=== PATIENT | female | born 1955 | race African-American/Black ===

== ENCOUNTER 2017-11-09 14:55 | Inpatient (IN) | payer OTHER ==
[~2017-11-09] VITALS: Ht 154.9 cm; Wt 65.8 kg
[2017-11-09 16:35] LABS: BASOPHIL (%) 0.3 % (0-1); EOSINOPHIL COUNT 0.1 K/uL (0-0.3); HEMATOCRIT 41.2 % (36.0-46.0); HEMOGLOBIN 13.1 G/DL (11.9-15.5); IMMATURE GRANULOCYTE (%) 0.3 % (0.0-0.7); LYMPHOCYTE (%) 50.7 % (15-42); LYMPHOCYTE COUNT 1.9 K/uL (1.0-2.8); MCH 27.8 PG (29.0-34.0); MCHC 31.8 G/DL (30.0-36.0); MCV 87.5 FL (83-99); MONOCYTE (%) 8.9 % (3-12); MONOCYTE COUNT 0.3 K/uL (0-0.8); NEUTROPHIL (%) 36.8 % (45-76); NEUTROPHIL COUNT 1.4 K/uL (1.8-6.4); RBC DIS.WIDTH-CV 13.3 % (11.8-14.6); RBC DIS.WIDTH-SD 42.6 % (39-53); RED BLOOD COUNT 4.71 M/uL (3.80-5.20); WHITE BLOOD COUNT 3.7 K/uL (4.1-10.2)
[2017-11-09 16:54] LABS: ALBUMIN 4.1 g/dL (3.2-4.8); CHLORIDE 103 mEq/L (99-109); POTASSIUM 3.9 mEq/L (3.7-5.4); SODIUM 141 mEq/L (136-147)
[2017-11-09 16:57] LABS: GLUCOSE 75 mg/dL (70-99); TOTAL PROTEIN 7.4 g/dL (6.4-8.3)
[2017-11-09 16:59] LABS: TOTAL BILIRUBIN 0.3 mg/dL (0.0-1.0)
[2017-11-09 17:00] LABS: ALKALINE PHOSPHATASE 101 IU/L (3-129); CREATININE 0.8 mg/dL (0.6-1.3)
[2017-11-09 17:01] LABS: UREA NITROGEN (BUN) 11 mg/dL (9-23)
[2017-11-09 17:02] LABS: AST (GOT) 17 IU/L (2-34); TROP-I INTERPRETATION NEGATIVE; TROPONIN-I < 0.01 ng/mL (0.0-0.30)
[2017-11-09 17:03] LABS: ALT (GPT) 13 IU/L (3-49)
[2017-11-09 17:06] LABS: GFR ESTIMATE (CALCULATED) > 59 mL/min/
[2017-11-09] MEDS ORDERED: METHADONE10 MG PO (17:55)
[2017-11-09] MEDS ORDERED: NEXIUM40 MG PO (17:56)
[2017-11-09] MEDS ORDERED: VENTOLIN HFA18 GM IH (17:57)
[2017-11-09] MEDS ORDERED: SYMBICORT60 INHALAT IH (17:57)
[2017-11-09] MEDS ORDERED: ADVIL200 MG PO (17:58)
[2017-11-09] MEDS ORDERED: NEURONTIN300 MG PO (17:58)
[2017-11-09 18:16] LABS: BASE EXCESS 8.8 mEq/L (-3 to +3); BICARBONATE 36.1 mEq/L (22-26); CARBOXY HGB 3.5 % (0-5); METHEMOGLOBIN 0.8 % (0-1.5); PCO2 61 mm Hg (35-45); PO2 50 mm Hg (80-100); pH 7.38 (7.35-7.45)
[2017-11-09 18:17] LABS: COMMENTS - BLOOD GASES A+C+; DEVICE NC; O2 FLOW 3 L/MIN; SITE RR; TOTAL RESP RATE 16 resp/min
[2017-11-09 18:19] LABS: PLAT.SUFFICIENCY ADEQUATE; PLATELET COUNT 217 K/uL (156-360)
[2017-11-10 02:12] VITALS: BP 146/65
[2017-11-10 07:06] VITALS: BP 138/63
[2017-11-10 07:45] LABS: HEMATOCRIT 40.8 % (36.0-46.0); HEMOGLOBIN 12.6 G/DL (11.9-15.5); MCH 26.9 PG (29.0-34.0); MCHC 30.9 G/DL (30.0-36.0); PLATELET COUNT 255 K/uL (156-360); RBC DIS.WIDTH-CV 13.2 % (11.8-14.6); RBC DIS.WIDTH-SD 42.1 % (39-53); RED BLOOD COUNT 4.69 M/uL (3.80-5.20); WHITE BLOOD COUNT 3.8 K/uL (4.1-10.2)
[2017-11-10 08:10] LABS: CHLORIDE 103 MEQ/L (99-109); CREATININE 0.7 MG/DL (0.6-1.3); GFR ESTIMATE (CALCULATED) > 59 mL/min/; POTASSIUM 3.9 MEQ/L (3.7-5.4); SODIUM 139 MEQ/L (136-147); UREA NITROGEN (BUN) 14 mg/dL (9-23)
[2017-11-10 08:14] LABS: GLUCOSE 239 mg/dL (70-99)
[2017-11-10 11:15] VITALS: BP 146/70
[2017-11-10 15:09] VITALS: BP 145/67
[2017-11-10 20:46] VITALS: BP 153/71
[2017-11-11 00:05] VITALS: BP 128/64
[2017-11-11 04:00] VITALS: BP 136/88
[2017-11-11 07:45] VITALS: BP 147/72
[2017-11-11 16:29] VITALS: BP 136/63
[2017-11-12 00:02] VITALS: BP 154/70
[2017-11-12 08:00] LABS: CHLORIDE 102 MEQ/L (99-109); CREATININE 0.7 MG/DL (0.6-1.3); GFR ESTIMATE (CALCULATED) > 59 mL/min/; GLUCOSE 151 mg/dL (70-99); POTASSIUM 4.3 MEQ/L (3.7-5.4); SODIUM 141 MEQ/L (136-147); UREA NITROGEN (BUN) 16 mg/dL (9-23)
[2017-11-12 08:05] VITALS: BP 163/79
[2017-11-12 11:46] LABS: HEPATITIS B SURFACE ANTIGEN Nonreactive
[2017-11-12 11:47] LABS: ANTI-HEPATITIS A VIRUS (IGM) Nonreactive; ANTI-HEPATITIS B CORE (IGM) Nonreactive
[2017-11-12 11:48] LABS: HIV-1/2 AB/AG COMBO Nonreactive
[2017-11-12 11:59] LABS: HEPATITIS C ANTIBODY REACTIVE
[2017-11-12 17:04] VITALS: BP 190/85
[2017-11-13 00:08] VITALS: BP 146/76
[2017-11-13 07:51] LABS: HEMOGLOBIN A1c (GLYCOHEMOGLOB) 6.2 % HGB (Below 5.7)
[2017-11-13 10:19] LABS: CHLORIDE 102 MEQ/L (99-109); CREATININE 0.8 MG/DL (0.6-1.3); GFR ESTIMATE (CALCULATED) > 59 mL/min/; GLUCOSE 116 mg/dL (70-99); POTASSIUM 3.9 MEQ/L (3.7-5.4); SODIUM 141 MEQ/L (136-147); UREA NITROGEN (BUN) 21 mg/dL (9-23)
[2017-11-13 11:29] VITALS: BP 210/100
[2017-11-13 11:42] VITALS: BP 198/78
[2017-11-13 11:54] LABS: TROP-I INTERPRETATION NEGATIVE; TROPONIN-I < 0.01 ng/mL (0.0-0.30)
[2017-11-13 15:27] VITALS: BP 198/88
[2017-11-13 17:55] VITALS: BP 173/74
[2017-11-13 18:23] LABS: TROP-I INTERPRETATION NEGATIVE; TROPONIN-I < 0.01 ng/mL (0.0-0.30)
[2017-11-13 23:16] VITALS: BP 145/70
[2017-11-14 07:11] LABS: TROP-I INTERPRETATION NEGATIVE; TROPONIN-I < 0.01 ng/mL (0.0-0.30)
[2017-11-14 07:15] VITALS: BP 142/67
[2017-11-14 07:23] LABS: CHLORIDE 103 MEQ/L (99-109); CREATININE 0.8 MG/DL (0.6-1.3); GFR ESTIMATE (CALCULATED) > 59 mL/min/; POTASSIUM 3.9 MEQ/L (3.7-5.4); SODIUM 140 MEQ/L (136-147); UREA NITROGEN (BUN) 15 mg/dL (9-23)
[2017-11-14 07:24] LABS: GLUCOSE 183 mg/dL (70-99)
[2017-11-14 15:45] VITALS: BP 117/58
[2017-11-14 20:23] LABS: HCV RNA (IU/mL) <15 IU/mL (<15)
[2017-11-15 00:37] VITALS: BP 139/65
[2017-11-15 07:14] VITALS: BP 133/75
[2017-11-15 09:17] LABS: BASOPHIL (%) 0.1 % (0-1); EOSINOPHIL (%) 0 % (0-5); HEMATOCRIT 46.9 % (36.0-46.0); IMMATURE GRANULOCYTE (%) 0.8 % (0.0-0.7); LYMPHOCYTE COUNT 1.6 K/uL (1.0-2.8); MCH 26.9 PG (29.0-34.0); MCHC 31.3 G/DL (30.0-36.0); MCV 85.7 FL (83-99); MONOCYTE (%) 6.8 % (3-12); MONOCYTE COUNT 0.5 K/uL (0-0.8); NEUTROPHIL (%) 71.3 % (45-76); NEUTROPHIL COUNT 5.6 K/uL (1.8-6.4); PLATELET COUNT 263 K/uL (156-360); RBC DIS.WIDTH-CV 13.8 % (11.8-14.6); RBC DIS.WIDTH-SD 43.5 % (39-53); RED BLOOD COUNT 5.47 M/uL (3.80-5.20); WHITE BLOOD COUNT 7.8 K/uL (4.1-10.2)
[2017-11-15 09:24] LABS: HEMOGLOBIN 14.7 G/DL (11.9-15.5)
[2017-11-15 09:37] LABS: CHLORIDE 101 MEQ/L (99-109); CREATININE 0.8 MG/DL (0.6-1.3); GFR ESTIMATE (CALCULATED) > 59 mL/min/; GLUCOSE 184 mg/dL (70-99); POTASSIUM 3.6 MEQ/L (3.7-5.4); SODIUM 140 MEQ/L (136-147); UREA NITROGEN (BUN) 14 mg/dL (9-23)
[2017-11-15 10:37] LABS: HCV RNA (LOG IU/mL) <1.18 (<1.18)
[2017-11-15] MEDS ORDERED: CEFTIN500 MG PO (11:29)
[2017-11-15] MEDS ORDERED: PREDNISONE20 MG PO (11:29)
[2017-11-15] MEDS ORDERED: VENTOLIN HFA18 GM IH (11:29)
[2017-11-15] MEDS ORDERED: NEURONTIN300 MG PO (11:29)
[2017-11-15] MEDS ORDERED: SYMBICORT60 INHALAT IH (11:29)
[2017-11-15] MEDS ORDERED: NICOTINE PATCH1 EAC1 TD (11:29)
[2017-11-15] MEDS ORDERED: BUPROPION HCL150 M2 PO (11:29)
[2017-11-15] MEDS ORDERED: NORVASC5 MG PO (11:29)
[2017-11-16 18:15] LABS: HCV RNA (IU/mL) <15 IU/mL (<15)
[2017-11-20 08:50] LABS: HCV RNA (LOG IU/mL) <1.18 (<1.18)
== END 2017-11-15 14:15 | disposition home or self-care (01) | DRG 191 ==
LOC: EME 14:55 → EDOF 19:56 → 2EASTP 19:56 → ENRESERV 19:58 → 2EASTP 11-10 02:12
PROVIDERS: Emergency Medicine; Family Medicine; Hospitalist; Internal Medicine; Internal Medicine Gastroenterology; Internal Medicine Pulmonary Disease
DX: J44.1 Chronic obstructive pulmonary disease with (acute) exacerbation (principal); J45.21 Mild intermittent asthma with (acute) exacerbation; J44.0 Chronic obstructive pulmonary disease with (acute) lower respiratory infection; J20.9 Acute bronchitis, unspecified; R07.2 Precordial pain; F32.9 Major depressive disorder, single episode, unspecified; F41.9 Anxiety disorder, unspecified; G89.4 Chronic pain syndrome; I10 Essential (primary) hypertension; F17.210 Nicotine dependence, cigarettes, uncomplicated; K21.9 Gastro-esophageal reflux disease without esophagitis; K59.00 Constipation, unspecified; T40.3X5A Adverse effect of methadone, initial encounter; R73.03 Prediabetes; R73.9 Hyperglycemia, unspecified; T38.0X5A Adverse effect of glucocorticoids and synthetic analogues, initial encounter; R51 Headache; F39 Unspecified mood [affective] disorder; Z79.891 Long term (current) use of opiate analgesic; Z86.19 Personal history of other infectious and parasitic diseases
CPT/HCPCS: 36600; 71045; 71275; 80048; 80053; 80074; 82803; 82948; 83036; 84484; 85025; 85027; 86703; 87502; 87522 90; 93005; 94640; 94640 76; 94760; 94799; 99202; 99281; 99285; J0360; J0696; J1650; J1815; J2270; J2930; J3475; J7512